=== PATIENT | male | born 1940 | race Caucasian/White ===

== ENCOUNTER → 2019-07-03 | Outpatient (CLI) | payer OTHER | LOC: SJCVCIMAG 12:44 | DX: E85.4 Organ-limited amyloidosis (principal); I43 Cardiomyopathy in diseases classified elsewhere; I42.9 Cardiomyopathy, unspecified; I12.9 Hypertensive chronic kidney disease with stage 1 through stage 4 chronic kidney disease, or unspecified chronic kidney disease; N18.4 Chronic kidney disease, stage 4 (severe); E78.00 Pure hypercholesterolemia, unspecified ==

== ENCOUNTER → 2020-03-05 | Outpatient (CLI) | payer OTHER | LOC: SJCVC 10:20 | PROVIDERS: ATTEND Internal Medicine Cardiovascular Disease | DX: R94.31 Abnormal electrocardiogram [ECG] [EKG] (principal); I45.2 Bifascicular block; I42.9 Cardiomyopathy, unspecified; I10 Essential (primary) hypertension; E78.00 Pure hypercholesterolemia, unspecified; R06.09 Other forms of dyspnea; Z86.718 Personal history of other venous thrombosis and embolism ==

== ENCOUNTER → 2020-04-22 | Outpatient (CLI) | payer OTHER | LOC: SJCVCIMAG 09:14 | PROVIDERS: ATTEND Internal Medicine Cardiovascular Disease | DX: I45.10 Unspecified right bundle-branch block (principal); E78.5 Hyperlipidemia, unspecified; I10 Essential (primary) hypertension; F17.200 Nicotine dependence, unspecified, uncomplicated; Z79.899 Other long term (current) drug therapy ==

== ENCOUNTER → 2020-09-11 | Outpatient (CLI) | payer OTHER | LOC: SJCVC 12:24 | PROVIDERS: ATTEND Internal Medicine Cardiovascular Disease | DX: R94.31 Abnormal electrocardiogram [ECG] [EKG] (principal); I45.2 Bifascicular block; I42.9 Cardiomyopathy, unspecified; E78.00 Pure hypercholesterolemia, unspecified; I13.0 Hypertensive heart and chronic kidney disease with heart failure and stage 1 through stage 4 chronic kidney disease, or unspecified chronic kidney disease; I50.9 Heart failure, unspecified; N18.30 Chronic kidney disease, stage 3 unspecified; E85.4 Organ-limited amyloidosis; I43 Cardiomyopathy in diseases classified elsewhere; F17.210 Nicotine dependence, cigarettes, uncomplicated; Z98.890 Other specified postprocedural states; Z90.49 Acquired absence of other specified parts of digestive tract; Z88.8 Allergy status to other drugs, medicaments and biological substances; Z79.82 Long term (current) use of aspirin; Z79.899 Other long term (current) drug therapy; Z86.718 Personal history of other venous thrombosis and embolism; Z82.49 Family history of ischemic heart disease and other diseases of the circulatory system ==

== ENCOUNTER → 2020-11-01 | Outpatient (CLI) | payer OTHER | LOC: SJCVCIMAG 12:08 | PROVIDERS: ATTEND Internal Medicine Cardiovascular Disease | DX: I08.2 Rheumatic disorders of both aortic and tricuspid valves (principal); I11.9 Hypertensive heart disease without heart failure; E11.9 Type 2 diabetes mellitus without complications; I42.9 Cardiomyopathy, unspecified; E85.9 Amyloidosis, unspecified; Z86.73 Personal history of transient ischemic attack (TIA), and cerebral infarction without residual deficits ==

== ENCOUNTER → 2020-12-03 | Outpatient (CLI) | payer OTHER | LOC: SJCVC 13:03 | PROVIDERS: ATTEND Internal Medicine Cardiovascular Disease | DX: R94.31 Abnormal electrocardiogram [ECG] [EKG] (principal); I45.10 Unspecified right bundle-branch block; E78.5 Hyperlipidemia, unspecified; I42.9 Cardiomyopathy, unspecified; I13.0 Hypertensive heart and chronic kidney disease with heart failure and stage 1 through stage 4 chronic kidney disease, or unspecified chronic kidney disease; I50.9 Heart failure, unspecified; N18.30 Chronic kidney disease, stage 3 unspecified; E78.00 Pure hypercholesterolemia, unspecified; C90.01 Multiple myeloma in remission; E85.4 Organ-limited amyloidosis; I43 Cardiomyopathy in diseases classified elsewhere; H26.9 Unspecified cataract; I65.23 Occlusion and stenosis of bilateral carotid arteries; F17.210 Nicotine dependence, cigarettes, uncomplicated; Z85.038 Personal history of other malignant neoplasm of large intestine; Z86.718 Personal history of other venous thrombosis and embolism; Z82.49 Family history of ischemic heart disease and other diseases of the circulatory system; Z79.899 Other long term (current) drug therapy; Z79.82 Long term (current) use of aspirin; Z88.8 Allergy status to other drugs, medicaments and biological substances; Z88.2 Allergy status to sulfonamides ==

== ENCOUNTER → 2021-06-04 | Outpatient (CLI) | payer OTHER | LOC: SJCVCIMAG 07:26 | PROVIDERS: ATTEND Internal Medicine Cardiovascular Disease | DX: R94.31 Abnormal electrocardiogram [ECG] [EKG] (principal); I44.7 Left bundle-branch block, unspecified; I65.23 Occlusion and stenosis of bilateral carotid arteries; E85.4 Organ-limited amyloidosis; I43 Cardiomyopathy in diseases classified elsewhere; I10 Essential (primary) hypertension; E78.00 Pure hypercholesterolemia, unspecified; I63.9 Cerebral infarction, unspecified; C90.01 Multiple myeloma in remission; F17.210 Nicotine dependence, cigarettes, uncomplicated; Z79.82 Long term (current) use of aspirin; Z79.899 Other long term (current) drug therapy; Z88.8 Allergy status to other drugs, medicaments and biological substances; Z88.2 Allergy status to sulfonamides ==